=== PATIENT | female | born 1960 | race Caucasian/White ===

== ENCOUNTER 2020-05-09 08:57 | Outpatient (CLI) | payer BC | END 2020-05-09 08:58 | disposition home or self-care (01) | LOC: CSHWCC 08:57 | PROVIDERS: ATTEND Nurse Practitioner Family | DX: T81.89XD Other complications of procedures, not elsewhere classified, subsequent encounter (principal); G35 Multiple sclerosis; G82.50 Quadriplegia, unspecified; B96.89 Other specified bacterial agents as the cause of diseases classified elsewhere; Z79.2 Long term (current) use of antibiotics; Z74.01 Bed confinement status | CPT/HCPCS: 97605 ==

== ENCOUNTER 2020-05-30 14:37 | Outpatient (CLI) | payer BC | END 2020-05-30 14:38 | disposition home or self-care (01) | LOC: CSHWCC 14:37 | PROVIDERS: ATTEND Nurse Practitioner Family | DX: T81.89XD Other complications of procedures, not elsewhere classified, subsequent encounter (principal); S31.819D Unspecified open wound of right buttock, subsequent encounter; B96.89 Other specified bacterial agents as the cause of diseases classified elsewhere; G35 Multiple sclerosis; G82.50 Quadriplegia, unspecified; Z74.01 Bed confinement status; Z79.2 Long term (current) use of antibiotics | CPT/HCPCS: 97605 ==

== ENCOUNTER 2020-06-20 10:55 | Outpatient (CLI) | payer BC | END 2020-06-20 10:56 | disposition home or self-care (01) | LOC: CSHWCC 10:55 | PROVIDERS: ATTEND Nurse Practitioner Family | DX: T81.89XD Other complications of procedures, not elsewhere classified, subsequent encounter (principal); G35 Multiple sclerosis; G82.50 Quadriplegia, unspecified; B96.89 Other specified bacterial agents as the cause of diseases classified elsewhere; Z74.01 Bed confinement status; Z79.2 Long term (current) use of antibiotics | CPT/HCPCS: 97605 ==

== ENCOUNTER 2020-10-03 09:43 | Outpatient (CLI) | payer BC | END 2020-10-03 09:44 | disposition home or self-care (01) | LOC: CSHWCC 09:43 | PROVIDERS: ATTEND Nurse Practitioner Family | DX: T81.89XD Other complications of procedures, not elsewhere classified, subsequent encounter (principal); S31.819D Unspecified open wound of right buttock, subsequent encounter; B96.89 Other specified bacterial agents as the cause of diseases classified elsewhere; G35 Multiple sclerosis; G82.50 Quadriplegia, unspecified; Z74.01 Bed confinement status; Z79.2 Long term (current) use of antibiotics | CPT/HCPCS: 99213; G0463 ==

== ENCOUNTER 2020-10-31 11:05 | Outpatient (CLI) | payer BC | END 2020-10-31 11:06 | disposition home or self-care (01) | LOC: CSHWCC 11:05 | PROVIDERS: ATTEND Nurse Practitioner Family | DX: T81.89XD Other complications of procedures, not elsewhere classified, subsequent encounter (principal); S31.819D Unspecified open wound of right buttock, subsequent encounter; B96.89 Other specified bacterial agents as the cause of diseases classified elsewhere; G35 Multiple sclerosis; G82.50 Quadriplegia, unspecified; Z74.01 Bed confinement status; Z79.2 Long term (current) use of antibiotics | CPT/HCPCS: 99213; G0463 ==

== ENCOUNTER 2020-12-26 09:43 | Outpatient (CLI) | payer BC | END 2020-12-26 09:44 | disposition home or self-care (01) | LOC: CSHWCC 09:43 | PROVIDERS: ATTEND Nurse Practitioner Family | DX: T81.89XD Other complications of procedures, not elsewhere classified, subsequent encounter (principal); S31.819D Unspecified open wound of right buttock, subsequent encounter; G35 Multiple sclerosis; G82.50 Quadriplegia, unspecified; B96.89 Other specified bacterial agents as the cause of diseases classified elsewhere; Z74.01 Bed confinement status; Z79.2 Long term (current) use of antibiotics | CPT/HCPCS: 11042; 99213; G0463 ==

== ENCOUNTER 2021-01-30 13:37 | Outpatient (CLI) | payer BC | END 2021-01-30 13:38 | disposition home or self-care (01) | LOC: CSHWCC 13:37 | PROVIDERS: ATTEND Nurse Practitioner Family | DX: T81.89XA Other complications of procedures, not elsewhere classified, initial encounter (principal); G89.29 Other chronic pain; G35 Multiple sclerosis; G82.50 Quadriplegia, unspecified; S31.819A Unspecified open wound of right buttock, initial encounter; Z74.01 Bed confinement status; Z79.2 Long term (current) use of antibiotics ==

== ENCOUNTER 2021-02-20 15:09 | Outpatient (CLI) | payer BC | END 2021-02-20 15:10 | disposition home or self-care (01) | LOC: CSHWCC 15:09 | PROVIDERS: ATTEND Nurse Practitioner Family | DX: T81.89XD Other complications of procedures, not elsewhere classified, subsequent encounter (principal); S31.819D Unspecified open wound of right buttock, subsequent encounter; S31.502D Unspecified open wound of unspecified external genital organs, female, subsequent encounter; S31.40XD Unspecified open wound of vagina and vulva, subsequent encounter; B96.89 Other specified bacterial agents as the cause of diseases classified elsewhere; G35 Multiple sclerosis; G82.50 Quadriplegia, unspecified; Z74.01 Bed confinement status; Z79.2 Long term (current) use of antibiotics ==

== ENCOUNTER 2021-03-13 12:43 | Outpatient (CLI) | payer BC | END 2021-03-13 12:44 | disposition home or self-care (01) | LOC: CSHWCC 12:43 | PROVIDERS: ATTEND Nurse Practitioner Family | DX: T81.89XD Other complications of procedures, not elsewhere classified, subsequent encounter (principal); S31.502D Unspecified open wound of unspecified external genital organs, female, subsequent encounter; S31.819D Unspecified open wound of right buttock, subsequent encounter; S31.40XD Unspecified open wound of vagina and vulva, subsequent encounter; B96.89 Other specified bacterial agents as the cause of diseases classified elsewhere; G35 Multiple sclerosis; G82.50 Quadriplegia, unspecified; Z79.2 Long term (current) use of antibiotics; Z74.01 Bed confinement status ==

== ENCOUNTER 2021-04-03 13:52 | Outpatient (CLI) | payer BC | END 2021-04-03 13:53 | disposition home or self-care (01) | LOC: CSHWCC 13:52 | PROVIDERS: ATTEND Nurse Practitioner Family | DX: T81.89XD Other complications of procedures, not elsewhere classified, subsequent encounter (principal); S31.819D Unspecified open wound of right buttock, subsequent encounter | CPT/HCPCS: 99214; G0463 ==

== ENCOUNTER 2021-06-06 12:51 | Outpatient (CLI) | payer BC | END 2021-06-06 12:52 | disposition home or self-care (01) | LOC: CSHWCC 12:51 | PROVIDERS: ATTEND Nurse Practitioner Family | DX: T81.89XD Other complications of procedures, not elsewhere classified, subsequent encounter (principal); S31.819D Unspecified open wound of right buttock, subsequent encounter | CPT/HCPCS: 99213; G0463 ==

== ENCOUNTER 2021-07-04 12:47 | Outpatient (CLI) | payer BC | END 2021-07-04 12:48 | disposition home or self-care (01) | LOC: CSHWCC 12:47 | PROVIDERS: ATTEND Nurse Practitioner Family | DX: T81.89XD Other complications of procedures, not elsewhere classified, subsequent encounter (principal) | CPT/HCPCS: 99213; G0463 ==

== ENCOUNTER 2021-07-11 11:17 | Outpatient (CLI) | payer BC | END 2021-07-11 11:18 | disposition home or self-care (01) | LOC: CSHWCC 11:17 | PROVIDERS: ATTEND Nurse Practitioner Family | DX: T81.89XD Other complications of procedures, not elsewhere classified, subsequent encounter (principal) | CPT/HCPCS: 87070; 87077; 87186; 87205; 99212; G0463 ==

== ENCOUNTER 2021-08-01 12:49 | Outpatient (CLI) | payer BC | END 2021-08-01 12:50 | disposition home or self-care (01) | LOC: CSHWCC 12:49 | PROVIDERS: ATTEND Nurse Practitioner Family | DX: T81.89XD Other complications of procedures, not elsewhere classified, subsequent encounter (principal) | CPT/HCPCS: 99212; G0463 ==

== ENCOUNTER 2021-08-26 14:57 | Outpatient (CLI) | payer BC | END 2021-08-26 14:58 | disposition home or self-care (01) | LOC: CSHWCC 14:57 | PROVIDERS: ATTEND Nurse Practitioner Family | DX: T81.89XD Other complications of procedures, not elsewhere classified, subsequent encounter (principal) ==

== ENCOUNTER 2021-10-08 13:39 | Outpatient (CLI) | payer BC | END 2021-10-08 13:40 | disposition home or self-care (01) | LOC: CSHWCC 13:39 | PROVIDERS: ATTEND Nurse Practitioner Family | DX: T81.89XD Other complications of procedures, not elsewhere classified, subsequent encounter (principal) | CPT/HCPCS: 99213; G0463 ==

== ENCOUNTER 2021-11-05 13:42 | Outpatient (CLI) | payer BC | END 2021-11-05 13:43 | disposition home or self-care (01) | LOC: CSHWCC 13:42 | PROVIDERS: ATTEND Nurse Practitioner Family | DX: T81.89XD Other complications of procedures, not elsewhere classified, subsequent encounter (principal) ==

== ENCOUNTER 2021-12-03 12:53 | Outpatient (CLI) | payer BC | END 2021-12-03 12:54 | disposition home or self-care (01) | LOC: CSHWCC 12:53 | PROVIDERS: ATTEND Preventive Medicine Undersea and Hyperbaric Medicine | DX: T81.89XD Other complications of procedures, not elsewhere classified, subsequent encounter (principal) | CPT/HCPCS: 97605 ==

== ENCOUNTER 2021-12-24 13:37 | Outpatient (CLI) | payer BC | END 2021-12-24 13:38 | disposition home or self-care (01) | LOC: CSHWCC 13:37 | PROVIDERS: ATTEND Nurse Practitioner Family | DX: T81.89XD Other complications of procedures, not elsewhere classified, subsequent encounter (principal) | CPT/HCPCS: 97605 ==

== ENCOUNTER 2022-01-14 12:50 | Outpatient (CLI) | payer BC | END 2022-01-14 12:51 | disposition home or self-care (01) | LOC: CSHWCC 12:50 | PROVIDERS: ATTEND Nurse Practitioner Family | DX: T81.89XD Other complications of procedures, not elsewhere classified, subsequent encounter (principal) ==

== ENCOUNTER 2022-02-12 12:47 | Outpatient (CLI) | payer BC | END 2022-02-12 12:48 | disposition home or self-care (01) | LOC: CSHWCC 12:47 | PROVIDERS: ATTEND Nurse Practitioner Family | DX: T81.89XD Other complications of procedures, not elsewhere classified, subsequent encounter (principal) ==

== ENCOUNTER 2022-04-03 12:56 | Outpatient (CLI) | payer BC | END 2022-04-03 12:57 | disposition home or self-care (01) | LOC: CSHWCC 12:56 | PROVIDERS: ATTEND Nurse Practitioner Family | DX: T81.89XD Other complications of procedures, not elsewhere classified, subsequent encounter (principal) ==

== ENCOUNTER 2022-04-24 13:09 | Outpatient (CLI) | payer BC | END 2022-04-24 13:10 | disposition home or self-care (01) | LOC: CSHWCC 13:09 | PROVIDERS: ATTEND Nurse Practitioner Family | DX: T81.89XD Other complications of procedures, not elsewhere classified, subsequent encounter (principal) | CPT/HCPCS: 99213; G0463 ==

== ENCOUNTER 2022-05-26 13:00 | Outpatient (CLI) | payer BC | END 2022-05-26 13:01 | disposition home or self-care (01) | LOC: CSHWCC 13:00 | PROVIDERS: ATTEND Nurse Practitioner Family | DX: T81.89XD Other complications of procedures, not elsewhere classified, subsequent encounter (principal) ==

== ENCOUNTER 2022-06-30 13:04 | Outpatient (CLI) | payer BC | END 2022-06-30 13:05 | disposition home or self-care (01) | LOC: CSHWCC 13:04 | PROVIDERS: ATTEND Nurse Practitioner Family | DX: T81.89XD Other complications of procedures, not elsewhere classified, subsequent encounter (principal) | CPT/HCPCS: 99213; G0463 ==

== ENCOUNTER 2022-07-28 13:58 | Outpatient (CLI) | payer BC | END 2022-07-28 13:59 | disposition home or self-care (01) | LOC: CSHWCC 13:58 | PROVIDERS: ATTEND Nurse Practitioner Family | DX: T81.89XD Other complications of procedures, not elsewhere classified, subsequent encounter (principal) | CPT/HCPCS: 99213; G0463 ==

== ENCOUNTER 2022-09-10 15:32 | Outpatient (CLI) | payer BC | END 2022-09-10 15:33 | disposition home or self-care (01) | LOC: CSHWCC 15:32 | PROVIDERS: ATTEND Nurse Practitioner Family | DX: T81.89XD Other complications of procedures, not elsewhere classified, subsequent encounter (principal) | CPT/HCPCS: 99213; G0463 ==

== ENCOUNTER 2022-10-22 15:53 | Outpatient (CLI) | payer BC | END 2022-10-22 15:54 | disposition home or self-care (01) | LOC: CSHWCC 15:53 | PROVIDERS: ATTEND Nurse Practitioner Family | DX: L89.152 Pressure ulcer of sacral region, stage 2 (principal); T81.89XD Other complications of procedures, not elsewhere classified, subsequent encounter | CPT/HCPCS: 97602 ==

== ENCOUNTER 2022-12-03 14:47 | Outpatient (CLI) | payer BC | END 2022-12-03 14:48 | disposition home or self-care (01) | LOC: CSHWCC 14:47 | PROVIDERS: ATTEND Preventive Medicine Undersea and Hyperbaric Medicine | DX: T81.89XD Other complications of procedures, not elsewhere classified, subsequent encounter (principal); L89.152 Pressure ulcer of sacral region, stage 2 | CPT/HCPCS: 97602; 99214; G0463 ==

== ENCOUNTER 2023-01-12 13:13 | Outpatient (CLI) | payer BC | END 2023-01-12 13:14 | disposition home or self-care (01) | LOC: CSHWCC 13:13 | PROVIDERS: ATTEND Preventive Medicine Undersea and Hyperbaric Medicine | DX: G35 Multiple sclerosis (principal); G82.50 Quadriplegia, unspecified; L89.152 Pressure ulcer of sacral region, stage 2; M86.60 Other chronic osteomyelitis, unspecified site; T81.89XD Other complications of procedures, not elsewhere classified, subsequent encounter | CPT/HCPCS: 99213; G0463 ==

== ENCOUNTER 2023-03-18 15:36 | Outpatient (CLI) | payer BC | END 2023-03-18 15:37 | disposition home or self-care (01) | LOC: CSHWCC 15:36 | PROVIDERS: ATTEND Physician Assistant | DX: L89.150 Pressure ulcer of sacral region, unstageable (principal) | CPT/HCPCS: 99213; G0463 ==

== ENCOUNTER 2023-03-30 13:11 | Outpatient (CLI) | payer BC | END 2023-03-30 13:12 | disposition home or self-care (01) | LOC: CSHWCC 13:11 | PROVIDERS: ATTEND Nurse Practitioner Family | DX: L89.154 Pressure ulcer of sacral region, stage 4 (principal) | CPT/HCPCS: 11043; 97607 ==

== ENCOUNTER 2023-04-06 15:04 | Outpatient (CLI) | payer BC | END 2023-04-06 15:05 | disposition home or self-care (01) | LOC: CSHWCC 15:04 | PROVIDERS: ATTEND Nurse Practitioner Family | DX: L89.154 Pressure ulcer of sacral region, stage 4 (principal); G35 Multiple sclerosis | CPT/HCPCS: 11043 ==

== ENCOUNTER 2023-04-13 13:13 | Outpatient (CLI) | payer BC | END 2023-04-13 13:14 | disposition home or self-care (01) | LOC: CSHWCC 13:13 | PROVIDERS: ATTEND Nurse Practitioner Family | DX: L89.154 Pressure ulcer of sacral region, stage 4 (principal); G35 Multiple sclerosis | CPT/HCPCS: 97605; 99214; G0463 ==